=== PATIENT | female | born 1940 | race Caucasian/White ===

== ENCOUNTER 2017-11-14 08:30 | Day surgery (SDC) ==
[2017-11-14] MEDS: BETADINE OPTH PREP OP PRN ×2 (10:10→10:50)
[2017-11-14] MEDS: TETRACAINE 0.5% UNIT-DOSE OP PRN ×3 (10:10→10:55)
[2017-11-14] MEDS: CYCLOGYL 2% OPTH OP PRN ×3 (10:10→10:20)
[2017-11-14] MEDS ORDERED: LIDOCAINE 1%/PHENYLEPHRINE 1.5% BSS (SURGERY) INTRAOCULA ONE (10:15)
[2017-11-14] MEDS ORDERED: BRIMONIDINE TARTRATE 0.2% OPTH SOL OP PRN (10:15)
[2017-11-14] MEDS ORDERED: DEX-MOXI-KETOR OPTH INJ 1/0.5/0.4 MG/ML IO ONE (10:15)
[2017-11-14] MEDS ORDERED: LIDOCAINE 1% 20 ML MDV ID STA (10:15)
[2017-11-14] MEDS ORDERED: BSS WITH EPINEPHRINE OP ONE (10:15)
[2017-11-14] MEDS ORDERED: ZOFRAN 4 MG/2 ML IVP ONE (10:15)
[2017-11-14] MEDS ORDERED: VERSED ONE (10:50)
[2017-11-14] MEDS ORDERED: SUBLIMAZE ONE (10:50)
[2017-11-14 16:02] VITALS: BP 143/71; TEMP 97.5
== END 2017-11-14 12:00 | disposition home or self-care (01) ==
LOC: SURG 08:30
PROVIDERS: ATTEND Ophthalmology
DX: H25.812 Combined forms of age-related cataract, left eye (principal)

== ENCOUNTER 2017-12-06 08:54 | Day surgery (SDC) | payer OTHER ==
[2017-12-06] MEDS: TETRACAINE 0.5% UNIT-DOSE OP PRN ×2 (10:25→10:59)
[2017-12-06] MEDS: BETADINE OPTH PREP OP PRN ×2 (10:25→11:02)
[2017-12-06] MEDS: CYCLOGYL 2% OPTH OP PRN ×3 (10:26→10:36)
[2017-12-06] MEDS ORDERED: LIDOCAINE 1% 20 ML MDV ID STA (10:27)
[2017-12-06] MEDS ORDERED: BSS WITH EPINEPHRINE OP ONE (10:27)
[2017-12-06] MEDS ORDERED: ZOFRAN 4 MG/2 ML IVP ONE (10:27)
[2017-12-06] MEDS ORDERED: DEX-MOXI-KETOR OPTH INJ 1/0.5/0.4 MG/ML IO ONE (10:27)
[2017-12-06] MEDS ORDERED: LIDOCAINE 1%/PHENYLEPHRINE 1.5% BSS (SURGERY) INTRAOCULA ONE (10:27)
[2017-12-06] MEDS ORDERED: BRIMONIDINE TARTRATE 0.2% OPTH SOL OP PRN (10:27)
[2017-12-06] MEDS ORDERED: VERSED ONE (11:00)
[2017-12-06] MEDS ORDERED: SUBLIMAZE ONE (11:00)
[2017-12-06 13:11] VITALS: TEMP 98.2
[2017-12-11 09:24] VITALS: BP 117/67
== END 2017-12-06 11:55 | disposition home or self-care (01) ==
LOC: SURG 08:54
PROVIDERS: ATTEND Ophthalmology
DX: H25.811 Combined forms of age-related cataract, right eye (principal)